=== PATIENT | female | born 1995 | race Caucasian/White ===

== ENCOUNTER 2016-06-15 17:43 | Emergency (ER) | payer OTHER ==
--- NOTE | 2016-06-15 18:43 | EDPHY ---
H & P Stated Complaint: episodes of sharp left upper chest pain this afternoon HPI/ROS: CHIEF COMPLAINT: Chest pain HISTORY OF PRESENT ILLNESS: The patient is a 21 year old female presenting to the emergency department with chest pain that started at 2pm today. The patient has a family history of significant for father that at 44 of [place]. She was evaluated at [facility] last fall for chest pain and was reportedly found to have an abnormal EKG. They did a cardiac MRI and US done that were reportedly normal (she isn't totally sure of the results). Today, around 2pm, the patient developed a sharp left sided chest pain. She had four such episodes over a three hour time period. She felt dizzy and short of breath. The patient admits to cocaine use 2 days ago. She also took Adderall that was not prescribed to her today. The patient has had a recent cough and sore throat for the past few days. Dyspnea and dizziness have resolved. She denies nausea or vomiting. REVIEW OF SYSTEMS: A ten point review of systems was performed and is negative with the exception of the items mentioned in the HPI. Source: Patient Exam Limitations: No limitations - Personal History LMP (Females 10-55): Unknown Current Tetanus/Diphtheria Vaccine: Unsure Current Tetanus Diphtheria and Acellular Pertussis (TDAP): Unsure - Medical/Surgical History Hx Asthma: No Hx Chronic Respiratory Disease: No Hx Diabetes: No Hx Cardiac Disease: No Hx Renal Disease: No Hx Cirrhosis: No Hx Alcoholism: No Hx HIV/AIDS: No Hx Splenectomy or Spleen Trauma: No Other PMH: knee surgery, "irregular heart beat". Past Family History: Father age 44 of cocaine cardiac induced arrhythmia.Uncle of heart defect. - Social History Smoking Status: Never smoked Alcohol Use: Occasionally Drug Use: Cocaine Additional Social History: [employer] student. - Physical Exam Exam: General Appearance: Alert. Vital signs reviewed. * Eyes: Pupils equal and round, no conjunctival injection, no discharge. Anicteric. ENT, Mouth: Mucous membranes are moist, no oropharyngeal erythema or edema. Neck: No lymphadenopathy, supple. Respiratory: Lungs are clear to auscultation; no wheezes, rales, or rhonchi. Cardiovascular: Regular rate and rhythm; no murmur, rub, or gallop. Gastrointestinal: Abdomen is soft and nontender, no masses or organomegaly, bowel sounds normal. Skin: Warm and dry, no rashes on exposed skin, normal color. Back: Nontender to palpation over the thoracolumbar spine. No CVAT. Extremities: No lower extremity edema, no calf tenderness or swelling. Neurological: Alert and oriented. Moving all four extremities easily and equally. Cranial nerves II through XII are examined and are intact (visual acuity not tested). Strength is 5 over 5 bilaterally with testing of all major motor groups. Sensation is intact to light touch over all 4 extremities. Deep tendon reflexes are 2+ in the biceps and knees bilaterally. Gait is normal. [id number] is performed accurately. Psychiatric: Normal affect. Constitutional: Initial Vital Signs Temperature (C) 36.5 C 06/15/16 17:46 Heart Rate 94 06/15/16 17:46 Respiratory Rate 16 06/15/16 17:46 O2 Sat (%) 95 06/15/16 17:46 O2 Delivery Mode Room Air Allergies/Adverse Reactions: No Known Allergies Allergy (Unverified 07/01/15 22:17) Home Medications: Medication Instructions Recorded Zovia 1-35E Tablet 06/15/16 Medical Decision Making - Diagnostics EKG Interpretation: The 12 lead EKG was interpreted by myself. See hard copy and/or "tracemaster" electronic copy for interpretation: Sinus rhythm. Borderline T abnormalities. No previous for comparison. ED Course/Re-evaluation: [age] year old female with intermittent short episodes of left chest pain that concern her because her father at age 44 of [place]. It turns out that he had a cocaine induced [place], no known CAD. She had a cardiac evaluation this past fall that was apparently negative/normal. She states that she has been told that her EKG is abnormal at baseline. Today's pain does not sound cardiac in nature. CBC, chemistries, troponin WNL. I do not suspect ACS. Nor do I suspect PE. No signs of infection such as pneumonia. She has what sounds like mild URI and pericarditis is a possibility--no rub on exam. She feels fine in the ED. I do not think that further evaluation is needed at this time. She did snort cocaine two days ago and also took Adderall that is not prescribed to her. I counseled cessation of these behaviors. - Data Points Laboratory Results: Laboratory Results 06/15/16 19:28 06/15/16 19:28 Departure - Departure Disposition: Home, Routine, Self-Care Clinical Impression: Non-cardiac chest pain Condition: Good Instructions: Chest Pain (ED) Additional Instructions: Adult Pain & Fever Control: We recommend Acetaminophen (Tylenol) and Ibuprofen (Motrin,Advil) for pain and fever control. When fever is high or pain severe, both drugs can be used at the same time, but at different intervals. Please note the time differences. Your dose is: Acetaminophen 650mg every 4 to 6 hours Ibuprofen 400mg every 4 hours with food. If you continue to have chest pain followup with your consulting marine engineer. Referrals: [facility],. [Clinic] - As per Instructions [facility] [Provider Group] - As per Instructions Report Scribed for: Yvonne Iraheta Report Scribed by: Janie Caballero Date of Report: 06/15/16 Time of Report: 19:05 Physician Review and Approval Statement: 06/15/16 18:42 Portions of this note were transcribed by the medical front desk specialist. I, Dr. Yvonne Iraheat, personally performed the history, physical exam, and medical decision- making; and confirmed the accuracy of the information in the transcribed note.
--- NOTE | 2016-06-15 18:51 | CPEKG ---
Heart Rate: 80 RR Interval: 750 P-R Interval: 140 QRSD Interval: 78 QT Interval: 388 QTC Interval: 448 P [place]: 24 QRS [place]: 35 T Wave [place]: -5 EKG Severity - BORDERLINE ECG - EKG Impression: SINUS RHYTHM EKG Impression: BORDERLINE T ABNORMALITIES, INFERIOR LEADS Electronically Signed By: Yvonne Iraheta 15-Jun-2016 23:42:30
[2016-06-15 19:43] LABS: % IMMATURE GRANULYOCYTES 0.3 % (0.0-1.1); ABSOLUTE IMMATURE GRANULOCYTES 0.02 10^3/uL (0.00-0.10); ADD DIFF? NO; ADD MORPH? NO; ADD SCAN? NO; ATYPICAL LYMPHOCYTE FLAG 30 (0-99); FRAGMENT RBC FLAG 0 (0-99); HEMATOCRIT 43.1 % (38.0-47.0); HEMOGLOBIN 14.9 g/dL (12.6-16.3); LEFT SHIFT FLG 0 (0-99); LIPEMIA HEMOLYSIS FLAG 90 (0-99); MEAN CELL HEMOGLOBIN 32.2 pg (27.9-34.1); MEAN CELL HEMOGLOBIN CONCENTR. 34.6 g/dL (32.4-36.7); MEAN CELL VOLUME 93.1 fL (81.5-99.8); MEAN PLATELET VOLUME 9.7 fL (8.7-11.7); PLATELET CLUMPS FLAG 20 (0-99); PLATELET COUNT 280 10^3/uL (150-400); RED BLOOD CELL COUNT 4.63 10^6/uL (4.18-5.33); RED CELL DISTRIBUTION WIDTH 12.8 % (11.5-15.2)
[2016-06-15 19:55] LABS: ANION GAP 10 mEq/L (8-16); CALCIUM 9.2 mg/dL (8.5-10.4); CARBON DIOXIDE 22 mEq/l (22-31); CHLORIDE 104 mEq/L (97-110); CREATININE 0.8 mg/dL (0.6-1.0); GLOMERULAR FILTRATION RATE > 60; GLUCOSE 86 mg/dL (70-100); SODIUM 136 mEq/L (134-144)
[2016-06-15 20:06] VITALS: O2SAT 97
[2016-06-15 20:07] LABS: TROPONIN I < 0.012 ng/mL (0-0.034)
[2016-06-15 21:03] VITALS: BP 122/66; PULSE 94; RESP 14; TEMP 99.7
== END 2016-06-15 21:03 | disposition home or self-care (01) ==
DX: R07.89 Other chest pain (principal)

== ENCOUNTER 2018-02-18 16:51 | Emergency (ER) | payer OTHER ==
--- NOTE | 2018-02-18 17:10 | EDPHY ---
HPI/HX/ROS/PE/MDM Narrative: CHIEF COMPLAINT: Chest pain HPI: The patient is a 23 y/o female with a history of abnormal EKG, cocaine use , and family history of cardiac disease who arrives complaining of substernal chest pain onset within the last hour. She first felt pain last night, but it resolved until this afternoon when she was walking home. Today the pain felt the same as prior episodes, but was associated with shortness of breath and she says, "this is the first time where it's really been ongoing." She describes the pain as "in the middle and sharp every time I breathe out." Prior episodes were associated with cocaine use and she says, "I did do quite a bit of cocaine this weekend" after a period of sobriety. Her father from a cocaine- related heart attack, her mother has atrial fibrillation, and her brother has "heart issues." She saw a flat locker in [place] four years ago for this pain and had a work up including a heart MRI, treadmill study, and EKG. She says these tests "were all abnormal but they couldn't figure out why so they just stopped," though it sounds like all she is sure of is that the EKG was abnormal. REVIEW OF SYSTEMS: A comprehensive 10 system review of systems is otherwise negative aside from elements mentioned in the history of present illness. PMH: Chest pain related to cocaine use FAMILY MEDICAL HISTORY: mother with a-fib, brother with heart issues, father from cocaine-induced heart attack SOCIAL HISTORY: Cocaine use; nonsmoker; [employer] student. PHYSICAL EXAM: General:Patient is alert, in no acute distress. ENT:Eyes are normal to inspection. ENT inspection normal. Neck: Normal inspection. Full range of motion. Respiratory:No respiratory distress. Breath sounds normal bilaterally. Cardiovascular: Regular rate and rhythm. Strong peripheral pulses. Normal cap refill. Abdomen:The abdomen is nontender to palpation. There are no peritoneal signs. Back: Normal to inspection. No tenderness to palpation. Skin: Normal color. No rash. Warm and dry. Extremities: Normal appearance. Full range of motion. Neuro: Oriented x3. Normal motor function. Normal sensory function. ED Course: This is a 23 y/o female with a history of cocaine use-related chest pain and family history of cardiac disease who presents with a 1-hour history of constant substernal chest pain with shortness of breath after a weekend of heavy cocaine use. Her exam is unremarkable. Plan for IV, labs, EKG. The 12 lead EKG was interpreted by myself. Sinus mechanism. PAC, abnormal T anterior leads. Similar to prior EKG patient brought with her. See hard copy and /or "tracemaster" electronic copy for interpretation. Labs including troponin, d-dimer, and test are all normal. Reevaluated patient and discussed findings. Recommended further provocative cardiac testing, but she adamantly declines any further work up and would like to return home. Counselled cessation of cocaine use. Follow up and return precautions discussed. - Data Points Laboratory Results: Laboratory Results 02/18/18 17:07 02/18/18 17:07 02/18/18 02/18/18 02/18/18 17:10 17:07 17:07 WBC RBC Hgb Hct MCV MCH MCHC RDW Plt Count MPV Neut % (Auto) Lymph % (Auto) [place] % (Auto) Eos % (Auto) Baso % (Auto) Nucleat RBC Rel Count Absolute Neuts (auto) Absolute Lymphs (auto) Absolute Monos (auto) Absolute Eos (auto) Absolute Basos (auto) Absolute Nucleated RBC Immature Gran % Immature Gran # D-Dimer < 0.27 ug/mLFEU ug/mLFEU (0.00-0.50) Sodium Potassium Chloride Carbon Dioxide Anion Gap BUN Creatinine Estimated GFR Glucose Calcium POC Troponin I 0.00 ng/mL ng/mL (0.00-0.08) Beta HCG, Qual NEGATIVE 02/18/18 02/18/18 17:07 17:07 WBC 8.83 10^3/uL 10^3/uL (3.80-9.50) RBC 4.62 10^6/uL 10^6/uL (4.18-5.33) Hgb 14.9 g/dL g/dL (12.6-16.3) Hct 42.2 % % (38.0-47.0) MCV 91.3 fL fL (81.5-99.8) MCH 32.3 pg pg (27.9-34.1) MCHC 35.3 g/dL g/dL (32.4-36.7) RDW 11.5 % % (11.5-15.2) Plt Count 396 10^3/uL 10^3/uL (150-400) MPV 9.5 fL fL (8.7-11.7) Neut % (Auto) 67.3 % % (39.3-74.2) Lymph % (Auto) 26.6 % % (15.0-45.0) [place] % (Auto) 4.5 % % (4.5-13.0) Eos % (Auto) 0.7 % % (0.6-7.6) Baso % (Auto) 0.6 % % (0.3-1.7) Nucleat RBC Rel Count 0.0 % % (0.0-0.2) Absolute Neuts (auto) 5.94 10^3/uL 10^3/uL (1.70-6.50) Absolute Lymphs (auto) 2.35 10^3/uL 10^3/uL (1.00-3.00) Absolute Monos (auto) 0.40 10^3/uL 10^3/uL (0.30-0.80) Absolute Eos (auto) 0.06 10^3/uL 10^3/uL (0.03-0.40) Absolute Basos (auto) 0.05 10^3/uL 10^3/uL (0.02-0.10) Absolute Nucleated RBC 0.00 10^3/uL 10^3/uL (0-0.01) Immature Gran % 0.3 % % (0.0-1.1) Immature Gran # 0.03 10^3/uL 10^3/uL (0.00-0.10) D-Dimer Sodium 142 mEq/L mEq/L (135-145) Potassium 3.6 mEq/L mEq/L (3.3-5.0) Chloride 107 mEq/L mEq/L (97-110) Carbon Dioxide 23 mEq/l mEq/l (22-31) Anion Gap 12 mEq/L mEq/L (6-14) BUN 10 mg/dL mg/dL (7-23) Creatinine 0.9 mg/dL mg/dL (0.6-1.0) Estimated GFR > 60 Glucose 86 mg/dL mg/dL (70-100) Calcium 9.9 mg/dL mg/dL (8.5-10.4) POC Troponin I Beta HCG, Qual Point of Care Test Results: Chemistry 02/18/18 17:10 POC Troponin I 0.00 ng/mL ng/mL (0.00-0.08) General Time Seen by Provider: 02/18/18 16:57 Initial Vital Signs: Initial Vital Signs Temperature (C) 36.9 C 02/18/18 16:56 Heart Rate 95 02/18/18 16:56 Respiratory Rate 18 02/18/18 16:56 Blood Pressure 126/98 H 02/18/18 16:56 O2 Sat (%) 99 02/18/18 16:56 O2 Delivery Mode Room Air Allergies/Adverse Reactions: No Known Allergies Allergy (Verified 02/18/18 16:56) Home Medications: Medication Instructions Recorded Zovia 1-35E Tablet 06/15/16 Spironolactone 02/18/18 Departure - Departure Disposition: Home, Routine, Self-Care Clinical Impression: Cocaine abuse Chest pain Qualifiers: Chest pain type: other chest pain Qualified Code(s): R07.89 - Other chest pain Condition: Good Instructions: Chest Pain (ED), Cocaine Abuse (ED) Additional Instructions: It is imperative that you stop using cocaine, which could cause or contribute to serious cardiac problems including . Please follow up with mental health resources provided or on campus to discuss substance use therapies. You also need to follow up with a flat locker locally for further evaluation of your heart. You've been referred to Dr. Shanks. Return to the ED for any worsening of condition. Referrals: [facility],. [Clinic] - As per Instructions [facility]. [Clinic] - As per Instructions Chad Shanks MD [Medical Doctor] - As per Instructions Report Scribed for: Minh Sandoval Report Scribed by: Ofelia Cameron Date of Report: 02/18/18 Time of Report: 17:19 Physician Review and Approval Statement: Portions of this note were transcribed by an ED scribe. I personally performed the history, physical exam, and medical decision making; and confirm the accuracy of the information in the transcribed note.
[2018-02-18 17:17] LABS: PLATELET COUNT 396 10^3/uL (150-400)
[2018-02-18 17:54] VITALS: BP 122/57
--- NOTE | 2018-02-25 21:27 | CPEKG ---
Test Reason : OPEN Blood Pressure : / mmHG Vent. Rate : 075 BPM Atrial Rate : 075 BPM P-R Int : 116 ms QRS Dur : 089 ms QT Int : 365 ms P-R-T Axes : 022 066 -01 degrees QTc Int : 408 ms Sinus rhythm Atrial premature complex Abnormal T, consider ischemia, anterior leads Borderline ST elevation, anterior leads Confirmed by Minh Sandoval ([id number]) on 02/25/2018 9:26:37 PM Referred By: Confirmed By:Minh Sandoval
== END 2018-02-18 17:54 | disposition home or self-care (01) ==
DX: R07.89 Other chest pain (principal); F14.10 Cocaine abuse, uncomplicated; R94.31 Abnormal electrocardiogram [ECG] [EKG]; Z82.49 Family history of ischemic heart disease and other diseases of the circulatory system
CPT/HCPCS: 84484-PO